=== PATIENT | female | born 1965 | race Caucasian/White ===

== ENCOUNTER 2017-10-28 14:21 | Day surgery (SDC) | payer MEDICARE, OTHER ==
[~2017-10-28 14:21] MED LIST: CEFAZOLIN 1 GM INJ
[2017-10-28] MEDS ORDERED: NALOXONE (0.4 MG/ML) INJ IV (16:00)
[2017-10-28] MEDS: BUPIVACAINE 0.5% (SDV) 30 ML INJ (16:39)
[2017-10-28] MEDS ORDERED: ROCURONIUM 50 MG INJ (16:47)
[2017-10-28] MEDS ORDERED: NEOSTIGMINE 3 MG/3 ML SYRINGE (16:47)
[2017-10-28] MEDS ORDERED: FENTAnyl 50 MCG/ML VIAL (16:47)
[2017-10-28] MEDS ORDERED: GLYCOPYRROLATE 0.4 MG INJ (16:47)
[2017-10-28] MEDS ORDERED: LIDOCAINE 2% (SDV) 5 ML INJ (16:47)
[2017-10-28] MEDS ORDERED: PROPOFOL 20 ML (16:47)
[2017-10-28] MEDS ORDERED: MIDAZOLAM 1 MG/ML 2 ML INJ ×2 (16:47→17:17)
[2017-10-28] MEDS ORDERED: DEXAMETHASONE 4 MG/ML 1 ML INJ (16:48)
[2017-10-28] MEDS ORDERED: ONDANSETRON 4 MG INJ (16:49)
[2017-10-28] MEDS ORDERED: MEPERIDINE 25 MG INJ IV (17:30)
[2017-10-28] MEDS ORDERED: hydrALAzine 20 MG INJ IV (17:30)
[2017-10-28] MEDS ORDERED: KETOROLAC 15 MG INJ IV (17:30)
[2017-10-28] MEDS ORDERED: ALBUTEROL 0.083% (NEB) 2.5 MG/3 ML AMP HHN (17:30)
[2017-10-28] MEDS ORDERED: HYDROmorphONE 1 MG/5 ML IV SYRINGE IV ×3 (17:30)
[2017-10-28] MEDS ORDERED: DIPHENHYDRAMINE 50 MG INJ IV (17:30)
[2017-10-28] MEDS ORDERED: OXYCODONE/ACETAMINOPHEN (5/325) TAB PO ×2 (17:30)
[2017-10-28] MEDS ORDERED: MIDAZOLAM 1 MG/ML 2 ML INJ IV (17:30)
[2017-10-28] MEDS ORDERED: LABETALOL HCL 20MG INJ IV (17:30)
[2017-10-28] MEDS ORDERED: morphine (1 MG/ML) 10ML SYRINGE IV ×2 (17:30)
[2017-10-28] MEDS ORDERED: ONDANSETRON 4 MG INJ IV (17:30)
[2017-10-28] MEDS ORDERED: FENTAnyl 50 MCG/ML VIAL IV ×2 (17:30)
== END 2017-10-28 18:35 | disposition home or self-care (01) ==
LOC: SDS 14:21
DX: G56.01 Carpal tunnel syndrome, right upper limb (principal); M67.431 Ganglion, right wrist
CPT/HCPCS: 25111; 88304

== ENCOUNTER 2017-11-11 15:02 | Day surgery (SDC) | payer MEDICARE, OTHER ==
[2017-11-11] MEDS: LACTATED RINGER'S 1,000 ML IV* (15:55)
[2017-11-11] MEDS ORDERED: BUPIVACAINE 0.5% (SDV) 30 ML INJ (16:36)
[2017-11-11] MEDS ORDERED: LIDOCAINE 1% (MPF) 30 ML INJ (16:36)
[2017-11-11] MEDS: BUPIVACAINE 0.5% (MPF) 30 ML INJ INJ (17:20)
[2017-11-11] MEDS: CEFAZOLIN 2 GM/50 ML (PMX) 50 ML IVPB (17:23)
[2017-11-11] MEDS ORDERED: PROPOFOL 20 ML (17:30)
[2017-11-11] MEDS ORDERED: LIDOCAINE 2% (SDV) 5 ML INJ (17:30)
[2017-11-11] MEDS ORDERED: CEFAZOLIN 1 GM INJ (17:30)
[2017-11-11] MEDS ORDERED: METOCLOPRAMIDE 10 MG INJ (17:35)
[2017-11-11] MEDS ORDERED: ONDANSETRON 4 MG INJ (17:35)
[2017-11-11] MEDS ORDERED: hydrALAzine 20 MG INJ IV (18:00)
[2017-11-11] MEDS ORDERED: MEPERIDINE 25 MG INJ IV (18:00)
[2017-11-11] MEDS ORDERED: OXYCODONE/ACETAMINOPHEN (5/325) TAB PO ×2 (18:00)
[2017-11-11] MEDS ORDERED: DIPHENHYDRAMINE 50 MG INJ IV (18:00)
[2017-11-11] MEDS ORDERED: ONDANSETRON 4 MG INJ IV (18:00)
[2017-11-11] MEDS ORDERED: MIDAZOLAM 1 MG/ML 2 ML INJ IV (18:00)
[2017-11-11] MEDS ORDERED: EPHEDrine SULFATE 50 MG/5 ML SYG IV (18:00)
[2017-11-11] MEDS ORDERED: FENTAnyl 50 MCG/ML VIAL IV ×3 (18:00)
[2017-11-11] MEDS ORDERED: LABETALOL HCL 20MG INJ IV (18:00)
[2017-11-11] MEDS ORDERED: METOCLOPRAMIDE 10 MG INJ IV (18:00)
== END 2017-11-11 19:20 | disposition home or self-care (01) ==
LOC: SDS 19:20
DX: G56.02 Carpal tunnel syndrome, left upper limb (principal); F17.200 Nicotine dependence, unspecified, uncomplicated
CPT/HCPCS: 64721